=== PATIENT | male | born 1960 | race Caucasian/White ===

== ENCOUNTER 2024-03-03 16:31 | Observation (INO) | payer OTHER ==
[2024-03-03] MEDS: LACTATED RINGERS SOLUTION 1000 ML INFUS.BAG IV ONE (17:12)
[2024-03-03 17:15] LABS: HEMOGLOBIN 14.6 G/dL (11.7-16.9); MCH 30.7 pg (25.7-33.7); MEAN CELL VOLUME 90.3 fl (80-96); PLATELET COUNT 201.3 10^3/uL (134-434); RBC 4.76 10^6/uL (4.00-5.60); RDW 13.3 % (11.9-15.9); WHITE BLOOD COUNT 6.2 10^3/uL (4.0-10.8)
[2024-03-03] MEDS ORDERED: GLUCAGON 1 MG KIT ONE (17:17)
[2024-03-03] MEDS: GLUCAGON 1 MG KIT IVPUSH ONE (17:25)
[2024-03-03 17:42] LABS: BILIRUBIN,TOTAL 0.4 mg/dl (0.2-1); CALCIUM 9.3 mg/dl (8.5-10.1); CREATININE 1.4 mg/dl (0.6-1.3); POTASSIUM 4.2 mmol/L (3.5-5.1); TOT PROT 6.3 g/dl (6.4-8.2)
[2024-03-03] MEDS: SODIUM CHLORIDE 0.9% 500 ML INFUS.BAG IV ONE ×2 (18:45→19:03)
[2024-03-03 18:58] LABS: N-TERMINAL BNP 95.7 pg/ml (5-125)
[2024-03-03 18:59] LABS: VENOUS O2 SATURATION 92.2 % (70-80); VENOUS PCO2 36.6 mmHg (38-52); VENOUS PH 7.364 (7.310-7.410)
[2024-03-03 20:03] LABS: HIV INTERPRETATION NEGATIVE (NEGATIVE)
[2024-03-03] MEDS ORDERED: DOCUSATE SODIUM 100 MG CAPSULE (FP) PO PRN (20:32)
[2024-03-03] MEDS ORDERED: ACETAMINOPHEN 325 MG TABLET (FP) PO PRN (20:32)
[2024-03-03 21:15] LABS: MAGNESIUM 1.9 mg/dL (1.8-2.4); PHOSPHOROUS 2.9 (2.5-4.9)
[2024-03-03 21:44] VITALS: BMI 36.4
[2024-03-03 22:57] LABS: INR 1.1 (0.83-1.09); PROTHROMBIN TIME (PATIENT) 12.5 SEC (9.7-13.0)
[2024-03-03 23:00] LABS: ACTIVATED PTT 20.6 SECONDS (25.2-36.5)
[2024-03-04] MEDS: INSULIN ASPART SLIDING SCALE (NOVOLOG) 1 VIAL SQ SCH (08:23)
[2024-03-04] MEDS: BACITRACIN ZINC 15 GM TUBE TOPICAL OINTMENT TP SCH (08:23)
[2024-03-04 08:51] LABS: CALCIUM 8.9 mg/dl (8.5-10.1); CREATININE 0.8 mg/dl (0.6-1.3); POTASSIUM 4.4 mmol/L (3.5-5.1)
[2024-03-04 09:22] LABS: BASO % 0.3 % (0-2.0); EOS % 0.9 % (0-4.5); HEMATOCRIT 40.2 % (35.4-49); HEMOGLOBIN 13.6 GM/dL (11.7-16.9); LYMPH % 30.3 % (8-40); MCH 30.7 pg (25.7-33.7); MCHC 33.8 g/dl (32.0-35.9); MEAN CELL VOLUME 90.8 fl (80-96); MEAN PLT VOLUME 8.6 fl (7.5-11.1); NEUT % 58.5 % (42.8-82.8); PLATELET COUNT 192 10^3/uL (134-434); RBC 4.42 M/mm3 (4.00-5.60); RDW 13.3 % (11.9-15.9); WHITE BLOOD COUNT 6.7 K/mm3 (4.0-10.0)
[2024-03-04] MEDS: PANTOPRAZOLE 40 MG TABLET PO SCH (09:22)
[2024-03-05 09:13] LABS: ALBUMIN 4.2 g/dl (3.4-5.0); BILIRUBIN,TOTAL 0.8 mg/dl (0.2-1); CALCIUM 9.4 mg/dl (8.5-10.1); POTASSIUM 4.5 mmol/L (3.5-5.1); TOT PROT 6.6 g/dl (6.4-8.2)
[2024-03-05 09:49] LABS: BASO % 0.4 % (0-2.0); EOS % 1.1 % (0-4.5); HEMATOCRIT 42.5 % (35.4-49); HEMOGLOBIN 14.8 GM/dL (11.7-16.9); LYMPH % 34.2 % (8-40); MCH 31.3 pg (25.7-33.7); MCHC 34.9 g/dl (32.0-35.9); MEAN CELL VOLUME 89.8 fl (80-96); MEAN PLT VOLUME 8.6 fl (7.5-11.1); MONO % 9.8 % (3.8-10.2); NEUT % 54.5 % (42.8-82.8); PLATELET COUNT 209 10^3/uL (134-434); RBC 4.74 M/mm3 (4.00-5.60); WHITE BLOOD COUNT 5.9 K/mm3 (4.0-10.0)
[2024-03-05 10:03] LABS: N-TERMINAL BNP 136.6 pg/ml (5-125)
[2024-03-05] MEDS: LISINOPRIL 5 MG TABLET PO SCH (10:32)
[2024-03-05] MEDS: MELATONIN 5 MG TABLETS PO PRN (22:28)
[2024-03-06 09:45] LABS: CALCIUM 9.5 mg/dl (8.5-10.1); CREATININE 0.9 mg/dl (0.6-1.3); PHOSPHOROUS 3.5 (2.5-4.9); POTASSIUM 4.3 mmol/L (3.5-5.1)
[2024-03-06 10:54] LABS: BASO % 0.3 % (0-2.0); EOS % 0.7 % (0-4.5); HEMATOCRIT 42.5 % (35.4-49); HEMOGLOBIN 15.1 GM/dL (11.7-16.9); LYMPH % 29.8 % (8-40); MCH 31.8 pg (25.7-33.7); MCHC 35.6 g/dl (32.0-35.9); MEAN CELL VOLUME 89.3 fl (80-96); MEAN PLT VOLUME 8.4 fl (7.5-11.1); MONO % 9.6 % (3.8-10.2); NEUT % 59.6 % (42.8-82.8); PLATELET COUNT 222 10^3/uL (134-434); RBC 4.76 M/mm3 (4.00-5.60); RDW 13.2 % (11.9-15.9); WHITE BLOOD COUNT 6.7 K/mm3 (4.0-10.0)
[2024-03-06] MEDS: ENOXAPARIN NA (PORCINE) 40 MG/0.4 ML DISP.SYRIN SQ SCH (13:56)
[2024-03-06] MEDS: metoPROLOL SUCCINATE 25 MG TAB.SR.24H (FP) PO ONE (18:43)
[2024-03-06] MEDS: ASPIRIN 81 MG CHEWABLE TABLETS PO SCH (18:43)
[2024-03-06] MEDS: ATORVASTATIN CA 40 MG TABLET (FP) PO SCH (21:24)
[2024-03-06 22:25] VITALS: RESP 18
[2024-03-07 10:16] VITALS: BP 130/84; PULSE 63; TEMP 97.5
== END 2024-03-07 12:46 | disposition home or self-care (01) ==
LOC: FER 16:31 → FM/S 20:39
PROVIDERS: ADMIT Internal Medicine; ATTEND Internal Medicine
PROC: 3E033GC Introduction of Other Therapeutic Substance into Peripheral Vein, Percutaneous Approach (ICD-10-PCS; principal; 2024-03-03)
PROC: 3E0337Z Introduction of Electrolytic and Water Balance Substance into Peripheral Vein, Percutaneous Approach (ICD-10-PCS; 2024-03-03)
DX: R94.31 Abnormal electrocardiogram [ECG] [EKG] (principal); R42 Dizziness and giddiness; I95.9 Hypotension, unspecified; R50.9 Fever, unspecified; I10 Essential (primary) hypertension; R73.03 Prediabetes; N40.0 Benign prostatic hyperplasia without lower urinary tract symptoms; R07.89 Other chest pain
CPT/HCPCS: 36415; 71045-TC-FY; 71250-TC; 78452-TC; 80048; 80053; 80061; 81003; 82010; 82803; 82962; 83036; 83735; 83880; 84100; 84439; 84443; 84484; 85025; 85027; 85610; 85730; 86803; 87086; 87389; 87635; 93005; 93010; 93017; 93306-TC; 96374; 99285-25; A9502; G0378